=== PATIENT | female | born 1935 | race Caucasian/White ===

== ENCOUNTER 2019-04-02 10:34 | Observation (INO) | payer OTHER ==
[2019-04-02] MEDS ORDERED: morphine CARPU-JECT 2 MG/1 ML DISP.SYRIN IVPUSH ONE ×3 (11:17→14:22)
[2019-04-02] MEDS ORDERED: MORPHINE SULFATE 2 MG/ML VIAL ONE ×3 (11:24→15:08)
--- NOTE | 2019-04-02 12:21 | PDOC ---
Documentation entered by Eleazar Clinton SCRIBE, acting as scribe for Yahir Robert MD. Yahir Robert MD: This documentation has been prepared by the Mary Beth amaro Nirvannie, SCRIBE, under my direction and personally reviewed by me in its entirety. I confirm that the documentation accurately reflects all work, treatment, procedures, and medical decision making performed by me. Attending Attestation - Resident Resident Name: Leo Walsh - ED Attending Attestation I have performed the following: I have examined & evaluated the patient, The case was reviewed & discussed with the resident, I agree w/resident's findings & plan, Exceptions are as noted - HPI HPI: 04/02/19 12:21 84 F presenting to ED with L shoulder pain after falling this morning. Pt states she was getting out of the shower when she tripped over the rug and fell onto her L side. Denies headstrike/LOC. Pt denies any lightheadedness/dizziness/ CP/SOB/palpitations preceding the fall. She was able to get up on her own and call her daughter, who brought her to the ED. Pt now endorses pain in her L shoulder, denies numbness/tingling in her extremity. Denies CROCKETT/neck pain/back pain. No lower extremity pain. - Physicial Exam PE: 04/02/19 12:23 "GENERAL: Awake, alert, and fully oriented, in no acute distress. HEAD: No signs of trauma EYES: PERRLA, EOMI, sclera anicteric, conjunctiva clear ENT: Auricles normal inspection, hearing grossly normal, nares patent, oropharynx clear without exudates. Moist mucosa NECK: Nontender, no stepoffs, Normal ROM, supple, no lymphadenopathy, JVD, or masses LUNGS: Breath sounds equal, clear to auscultation bilaterally. No wheezes, and no crackles HEART: Regular rate and rhythm, normal S1 and S2, no murmurs, rubs or gallops ABDOMEN: Soft, nontender, normoactive bowel sounds. No guarding, no rebound. No masses EXTREMITIES: + L shoulder with TTP proximal humerus, flattening of deltoid, neurovascularly intact distally. NEUROLOGICAL: Cranial nerves II through XII intact. 5/5 strength and sensation in all extremities, Normal speech, normal gait, normal cerebellar function SKIN: Warm, Dry, normal turgor, no rashes or lesions noted. - Medical Decision Making 04/02/19 12:23 84 F with L shoulder pain and deformity after falling. - CT head/c-spine - XR L shoulder - Pain control CT head/c-spine negative XR L shoulder with fracture dislocation Discussed with radiology, who cannot exclude surgical neck fracture CT LUE obtained, shows comminuted avulsion fx of greater tuberosity + dislocation Case discussed with ortho ATA Pope, who reviewed XR and CT and recommends reduction. Reduction obtained after procedural sedation with versed and ketamine, but unsuccessful Ortho consulted Pt signed out to oncoming team at 7PM.
--- NOTE | 2019-04-02 12:28 | PDOC ---
History of Present Illness - General Chief Complaint: Injury Stated Complaint: FALL Time Seen by Provider: 04/02/19 10:51 History Source: Patient, Family Exam Limitations: No Limitations - History of Present Illness Initial Comments: 04/04/19 07:15 HPI: 84F PMH HTN BIBEMS after unwitnessed fall in the bathroom. Pt was getting out of shower and slipped on a rug landing on her left side. Denies head strike and LOC. Currently endorsing left shoulder pain. Endorses tingling of the left fingers, denies numbness or weakness. Denies other trauma or pain elsewhere. Denies f/c, cp/palp/sob. Not on AC. Hx of a prior fall w/ broken ribs. NKDA Past History - Past Medical History Allergies/Adverse Reactions: Allergies Allergy/AdvReac Type Severity Reaction Status Date / Time No Known Allergies Allergy Verified 04/02/19 10:58 Home Medications: Ambulatory Orders Acetaminophen [Tylenol .Regular Strength -] 650 mg PO Q6H PRN tablet 04/03/19 Atorvastatin Calcium 10 mg PO DAILY 04/03/19 Famotidine 1 tab PO BID 04/03/19 Irbesartan 1 tab PO DAILY 04/03/19 Propranolol HCl 1 tab PO DAILY 04/03/19 Ropinirole HCl 1 mg PO DAILY 04/03/19 - Psycho Social/Smoking Cessation Hx Smoking History: Unknown if ever smoked Hx Alcohol Use: No Drug/Substance Use Hx: No Review of Systems - Review of Systems Able to Perform ROS?: Yes Comments:: 04/04/19 07:16 ROS: CONSTITUTIONAL: Denies F / C HEENT: Denies headache, lightheadedness, dizziness, changes in vision / hearing RESP: Denies SOB CARD: Denies chest pain, palpitations GI: Denies N / V / D, abdominal pain : Denies dysuria, frequency SKIN: Denies rashes NEURO: Endorses tingling of the left fingers. Denies other numbness, tingling, weakness MSK: Endorses left shoulder pain. Denies back pain *Physical Exam - Vital Signs Last Vital Signs Temp Pulse Resp BP Pulse Ox 97.9 F 65 16 196/109 H 100 04/02/19 10:58 04/02/19 10:58 04/02/19 10:58 04/02/19 10:58 04/02/19 10:58 - Physical Exam Comments: 04/04/19 07:16 PE: GEN: Moderate discomfort 2/2 pain. AAOx3 HEENT: NC/AT, CN II-XII intact, EOMI, PERRLA. No facial asymmetry. Normal voice. Supple neck w/ FROM. No TTP midline c-spine. CV: S1/S2, RRR, no m/r/g LUNG: CTAB, no wheezes, crackles, rales, rhonchi. GI: soft, ndnt, +BS, no guarding, no rebound. No masses. EXTREMITIES: Squared off left shoulder. Left arm held in internal rotation. No other obvious deformities. no TTP RUE and LEs. FROM LEs b/l. 2+ radial pulses b/ l. BACK: No obvious deformities, no step offs, no midline TTP. No signs of bruising SKIN: warm, dry, normal turgor; no ecchymoses or bruises PSYCH: normal mood and affect NEURO: 5/5 RUE strength, 4/5 left covered buckle assembler, 5/5 left finger spread and "OK" sign. Symmetric sensation b/l. Sensation present over left deltoid. 5/5 LE strength. ED Treatment Course - LABORATORY CBC & Chemistry Diagram: 04/03/19 05:41 04/03/19 05:41 - RADIOLOGY Radiology Studies Ordered: Category Date Time Status CERVICAL SPINE CT W/O CONTR [CT] Stat CT Scan 04/02/19 11:[address] WITHOUT CONTRAST [CT] Stat CT Scan 04/02/19 11:19 Ordered CHEST PA & LAT [RAD] Stat Radiology 04/02/19 11:17 Ordered SHOULDER-LEFT [RAD] Stat Radiology 04/02/19 11:17 Ordered Medical Decision Making - Medical Decision Making 04/02/19 12:18 MDM: 84F s/p mechanical fall w/o headstrike or LOC not on AC w/ left shoulder deformity and pain. Neurovascularly intact. Shoulder dislocation vs fracture - Left shoulder film - CXR - CT head and c-spine - pain ctrl 04/02/19 14:38 XR possible fracture of humeral head and inferior glenoid fracture fragment, medially displaced humeral head Discussed case w/ PA Adams Abraham who recommended reduction of dislocation and reimaging w/ ortho outpatient f/u. 04/02/19 14:51 attempting to reach radiology for further clarification of xray reads - pt still in pain despite 4mg morphine; will give additional 2mg 04/02/19 15:06 Discussed imaging w/ Dr. Alvarez (radiology) - states there is a fracture but based on the images cannot tell if fracture is humeral head alone or if it involves inferior glenoid fracture fragment. 04/02/19 15:41 CT LUE to better characterize fracture 04/02/19 18:30 patient consented for procedural sedation and shoulder reduction patient sedated with versed and ketamine ED team attempted reduction w/ traction-counter traction 04/02/19 19:20 Post attempt XR demonstrates non-reduction Pt neurovascularly intact - Ortho c/s signed out to PM team Discharge - Discharge Information Problems reviewed: Yes Clinical Impression/Diagnosis: Intractable pain Shoulder dislocation Qualifiers: Encounter type: initial encounter Laterality: left Qualified Code(s): S43.005A - Unspecified dislocation of left shoulder joint, initial encounter Condition: Improved - Follow up/Referral - Patient Discharge Instructions - Post Discharge Activity
[2019-04-02] MEDS ORDERED: MIDAZOLAM HCL 2 MG/2 ML SINGLE DOSE VIAL IVPUSH ONE (18:09)
[2019-04-02] MEDS ORDERED: KETAMINE HCL 200 MG/20 ML VIAL IVPUSH ONE (18:09)
[2019-04-02] MEDS ORDERED: MIDAZOLAM HCL 2 MG/2 ML SINGLE DOSE VIAL ONE (18:29)
[2019-04-02] MEDS ORDERED: KETAMINE HCL 200 MG/20 ML VIAL ONE (18:29)
--- NOTE | 2019-04-02 19:28 | PDOC ---
*Physical Exam - Vital Signs Last Vital Signs Temp Pulse Resp BP Pulse Ox 97.9 F 69 18 144/98 98 04/02/19 10:58 04/02/19 18:30 04/02/19 18:30 04/02/19 18:30 04/02/19 18:30 - Physical Exam Comments: Patient signed out by Dr. Walsh 84yo F with PMH of HTN BIBEMS after unwitnessed fall in the bathroom. CT LUE: "COMPARISON: None. FINDINGS: Comminuted avulsion fracture of the greater tuberosity of the proximal left humerus. There are no visible fractures of the surgical or anatomic neck of the proximal left humerus. The humeral head is anteriorly dislocated and interposed between the anterior margin of the scapula and the left ribs. A joint effusion is evident. There is an avulsion fracture of the coracoid process associated with the short head of the biceps tendons. An inferior glenoid rim fracture is noted with minimal displacement. A glenohumeral joint effusion is present. No abnormality of the acromioclavicular articulation. No large hematoma in the axillary region. No underlying rib fractures or pneumothorax. IMPRESSION: Comminuted avulsion fracture of the greater tuberosity of the proximal left humerus. There are no visible fractures of the surgical or anatomic neck of the proximal left humerus. The humeral head is anteriorly dislocated and interposed between the anterior margin of the scapula and the left ribs. Small avulsion fracture of the coracoid process. Small, nondisplaced inferior rim fracture of the glenoid." S/p reduction attempt Radiograph showing shoulder is still dislocated Plan to consult orthopedics 04/02/19 19:28 Page to ortho at [phone]; awaiting callback 04/02/19 19:37 Patient had received total of 6mg morphine Continues to be in "excruciating" pain Last BP 160s systolic 2mg dilaudid ordered Discussed case with Orthopedics ATA Abraham who will come to reduce the shoulder ; recommends propofol for procedural sedation 04/02/19 19:40 Benefits/risks explained and patient voiced understanding. Patient signed consent for procedural sedation Received 30mg propofol (slightly less than 0.5mg/kg) Reduction performed by ATA Abraham using traction/counter-traction method; arm placed in sling Post procedure film pending Will continue to monitor 04/02/19 21:08 L. shoulder radiograph without dislocation, my impression Admission recommended as patient is in severe pain requiring acute inpatient management as indicated by pain unresponsive to non-opioid analgesia and nonpharmacologic treatment; oral, transdermal, submucosal route not appropriate or not sufficient; anticipated titration not appropriate for lower level of care Discussed case with Dr. Garcia who accepted patient for med/surg observation under Dr. Tompkins 04/02/19 21:55 Patient's daughter, Kirti Wood, can be reached at [phone] 04/02/19 22:04 ED Treatment Course - LABORATORY CBC & Chemistry Diagram: 04/02/19 20:29 04/02/19 20:29 - Medications Given in the ED: ED Medications Discontinued Medications Generic Name Dose Route Start Last Admin Trade Name Freq PRN Reason Stop Dose Admin Morphine Sulfate 2 mg 04/02/19 11:17 04/02/19 12:15 Morphine Injection - IVPUSH 04/02/19 11:18 2 mg ONCE ONE Administration Morphine Sulfate 2 mg 04/02/19 13:00 04/02/19 13:19 Morphine Injection - IVPUSH 04/02/19 13:01 2 mg ONCE ONE Administration Morphine Sulfate 2 mg 04/02/19 14:22 04/02/19 15:09 Morphine Injection - IVPUSH 04/02/19 14:23 2 mg ONCE ONE Administration Discharge - Discharge Information Problems reviewed: Yes Clinical Impression/Diagnosis: Shoulder dislocation, Intractable pain Condition: Guarded - Admission Yes - Follow up/Referral - Patient Discharge Instructions - Post Discharge Activity
[2019-04-02] MEDS ORDERED: HYDROmorphone HCL CARPU-JECT 2 MG/1 ML DISP.SYRIN IVPUSH ONE (19:52)
--- NOTE | 2019-04-02 19:56 | PDOC ---
*Physical Exam - Vital Signs Last Vital Signs Temp Pulse Resp BP Pulse Ox 97.9 F 70 14 158/89 96 04/02/19 10:58 04/02/19 19:31 04/02/19 19:31 04/02/19 19:31 04/02/19 19:31 ED Treatment Course - LABORATORY CBC & Chemistry Diagram: 04/02/19 20:29 04/02/19 20:29 - Medications Given in the ED: ED Medications Discontinued Medications Generic Name Dose Route Start Last Admin Trade Name Luz PRN Reason Stop Dose Admin Morphine Sulfate 2 mg 04/02/19 11:17 04/02/19 12:15 Morphine Injection - IVPUSH 04/02/19 11:18 2 mg ONCE ONE Administration Morphine Sulfate 2 mg 04/02/19 13:00 04/02/19 13:19 Morphine Injection - IVPUSH 04/02/19 13:01 2 mg ONCE ONE Administration Morphine Sulfate 2 mg 04/02/19 14:22 04/02/19 15:09 Morphine Injection - IVPUSH 04/02/19 14:23 2 mg ONCE ONE Administration Medical Decision Making - Medical Decision Making 04/02/19 19:52 Received pt on signout. She had relocation efforts of her brokern and dislocated left shoulder that hasn't worked. Morphine not helping; we will give 2mg dilaudid. Pt states that she is in excruciating pain. She has never been in this hospital before; no labs on file. She fell inshower, reportedly; pt lives alone; she states that she slipped and fell, but we do not know what her HB/HCT level is. Pt not on blood thinners, however, we will get INR, because I anticipate bleeding from her brokern proximal humerus, particularly after all the tugging on her shoulder past and futire; Ortho called and they will come and attempt relocation. Pt lives alone and she will likely be admitted for observation. 04/02/19 19:58 Pt has 3 fractures: greater tuberosity of the humeral head; coracoid process; glenoid rim I do not anticipate sending her home tonight, as she will likely have pain management issues. She has been in the ER for 9.5 hrs thus far. 04/02/19 21:03 Ortho PA at bedside; conscious sedation paperwork signed; pt given 30mg of propofol IVP; she will get a repeat XR; nurse, resident, myself and tech in attendance and all involved in the procedure. 04/02/19 21:39 Relocation was successful and pt tolerated the procedure well 04/02/19 22:28 Pt admitted for pain management. Family is in agreement. 04/02/19 22:29 Discharge - Discharge Information Problems reviewed: Yes Clinical Impression/Diagnosis: Shoulder dislocation, Intractable pain Condition: Guarded - Follow up/Referral - Patient Discharge Instructions - Post Discharge Activity Procedures - Joint Reduction Left Joint Reduction Site: left: Shoulder Pre-Procedure NV Exam: normal Conscious Sedation: Yes (propofol) Reduction Attempts: 1 Amt. of medication administered: 10mg (30mg of propofol) Procedure: Traction Counter Traction Post-Procedure NV Exam: normal Complications: No Post Joint Reduction Film: joint reduced Splint: No (only sling) Immobilized: Yes
[2019-04-02] MEDS ORDERED: HYDROmorphone HCl 2 MG/ML VIAL ONE (20:16)
[2019-04-02] MEDS ORDERED: PROPOFOL 200 MG/20 ML VIAL IVPUSH ONE ×2 (20:30→21:40)
[2019-04-02] MEDS ORDERED: PROPOFOL 20 ML ONE (20:34)
[2019-04-02] MEDS ORDERED: SODIUM CHLORIDE 0.9% 500 ML INFUS.BAG IV ONE (20:40)
[2019-04-02 20:46] LABS: BASO % 0.8 % (0-2.0); EOS % 0.7 % (0-4.5); HEMATOCRIT 43.2 % (32.4-45.2); HEMOGLOBIN 14.4 GM/dL (10.7-15.3); LYMPH % 11.6 % (8-40); MCH 33.3 pg (25.7-33.7); MCHC 33.4 g/dl (32.0-36.0); MEAN CELL VOLUME 99.6 fl (80-96); MEAN PLT VOLUME 7.9 fl (7.5-11.1); MONO % 6.5 % (3.8-10.2); NEUT % 80.4 % (42.8-82.8); PLATELET COUNT 210 K/MM3 (134-434); RBC 4.34 M/mm3 (3.60-5.2); RDW 12.8 % (11.6-15.6); WHITE BLOOD COUNT 9.5 K/mm3 (4.0-10.0)
--- NOTE | 2019-04-02 21:18 | CONSULT ---
Consult Reason for Consultation:: Left shoulder pain x 12 hours - History of Present Illness History of Present Illness: 84y/o female c/o left shoulder pain x 12 hours. She fell earlier today and injured her left shoulder. She is unable to lift the arm. She came to the ER and was found to have a fracture dislocation and a closed reduction was attempted but failed. Orthopedics was consulted. the patient continues to have pain in the arm. She denies any numbness or tingling. - History Source History Provided By: Patient, Medical Record - Alcohol/Substance Use Hx Alcohol Use: No - Smoking History Smoking history: Unknown if ever smoked Home Medications - Allergies Allergies/Adverse Reactions: Allergies Allergy/AdvReac Type Severity Reaction Status Date / Time No Known Allergies Allergy Verified 04/02/19 10:58 - Home Medications Home Medications: Ambulatory Orders Acetaminophen [Tylenol .Regular Strength -] 650 mg PO Q6H PRN tablet 04/03/19 Atorvastatin Calcium 10 mg PO DAILY 04/03/19 Famotidine 1 tab PO BID 04/03/19 Irbesartan 1 tab PO DAILY 04/03/19 Propranolol HCl 1 tab PO DAILY 04/03/19 Ropinirole HCl 1 mg PO DAILY 04/03/19 Review of Systems - Review of Systems Constitutional: reports: No Symptoms Eyes: reports: No Symptoms HENT: reports: No Symptoms Neck: reports: No Symptoms Cardiovascular: reports: No Symptoms Respiratory: reports: No Symptoms Gastrointestinal: reports: No Symptoms Genitourinary: reports: No Symptoms Breasts: reports: No Symptoms Reported Musculoskeletal: reports: Extremity Pain Integumentary: reports: No Symptoms Neurological: reports: No Symptoms Endocrine: reports: No Symptoms Hematology/Lymphatic: reports: No Symptoms Psychiatric: reports: No Symptoms Physical Exam Vital Signs: Vital Signs Temperature 97.9 F 04/02/19 10:58 Pulse Rate 75 04/02/19 21:00 Respiratory Rate 12 04/02/19 21:00 Blood Pressure 164/103 H 04/02/19 21:00 O2 Sat by Pulse Oximetry (%) 94 L 04/02/19 21:00 Constitutional: Yes: Well Nourished, No Distress, Calm Musculoskeletal: Yes: Other (Left shoulder: Obvious deformity of the left shoulder consitant with anterior shoulder dislocation. there is pain with motion. NVID. Compartments soft.) Labs: CBC, BMP 04/02/19 20:29 Imaging - Results X-ray: Report Reviewed, Image Reviewed (Anterior shoulder dislocation with greater tubersoity fracture) Cat Scan: Report Reviewed, Image Reviewed Assessment/Plan #1 Left shoulder anterior dislocation -I discussed today's findings and treatment options with the patient and family. together we decided to proceed with closed reduction. RBA discussed. Procedure, Left shoulder fracture/dislocation reduction: the patient was positioned supine. A sheet was used to provide counter traction. the patient was sedated by the ER staff with propofol. A traction/counter traction maneuver was then performed and after about 10 minutes reduction was achieved. The patient tolerated the procedure well. Post reduction x-rays were obtained. NV exam intact s/p reduction. Sling was placed. -Follow up in 1 week in office or sooner if needed -multimedia coordinator sling immobilzation -Return to ER for severe pain or any problems -Pain control
[2019-04-02 21:19] LABS: BLOOD UREA NITROGEN 25.7 mg/dL (7-18); CALCIUM 9.2 mg/dL (8.5-10.1); CREATININE 0.9 mg/dL (0.55-1.3); POTASSIUM 4.9 mmol/L (3.5-5.1); TOT PROT 6.8 g/dl (6.4-8.2)
[2019-04-02 21:23] LABS: INR 0.96 (0.83-1.09); PROTHROMBIN TIME (PATIENT) 11.3 SEC (9.7-13.0)
--- NOTE | 2019-04-02 21:49 | PN ---
Teaching Attending Note Name of Resident: Kain Goddard ATTENDING PHYSICIAN STATEMENT I saw and evaluated the patient. I reviewed the resident's note and discussed the case with the resident. I agree with the resident's findings and plan as documented. SUBJECTIVE: Patient is an 84 year old woman with PMH of HTN presenting to ER with left shoulder pain after a fall this morning. Patient states she was getting out of the shower when she tripped over the rug and fell onto her left side. Denies headstrike/LOC. Denies any lightheadedness, dizziness, chest pain, SOB, or palpitations preceding the fall. She was able to get up on her own and call her daughter, who brought her to the ER. Patient denies numbness/tingling in her extremity, headache, neck pain, back pain or lower extremity pain. Denies tobacco, alcohol or illicit drug use. Patient seen by Ortho in the ER and the shoulder dislocation reduced. OBJECTIVE: Alert Vital Signs Period Temp Pulse Resp BP Sys/Andrews Pulse Ox Last 24 Hr 97.9 F 60-80 11-20 120-196/79-139 92-100 HEENT: No Jaundice, eye redness or discharge, PERRLA, EOMI. Normocephalic, atraumatic. External ears are normal and hearing is grossly intact. No nasal discharge. Neck: Supple, nontender. No palpable adenopathy or thyromegaly. No JVD Chest: Good effort. Clear to auscultation and percussion. Heart: Regular. No S3 or rub; 2/6 RODOLFO Abdomen: Not distended, soft, nontender and no HSM. No rebound or guarding. Normal bowel sounds. Ext: Peripheral pulses intact. No leg edema. Tender left shoulder with limited ROM. Distal motor and sensory function intact. Skin: Warm and dry. No petechiae, rash or ecchymosis. Neuro: Alert. Oriented x3. CN 2-12 grossly intact. Sensation grossly intact in all four extremities and DTR are symmetric. Psych: Appropriate mood and affect. Good insight. Current Medications Generic Name Dose Route Start Last Admin Trade Name Freq PRN Reason Stop Dose Admin Heparin Sodium (Porcine) 5,000 unit 04/03/19 06:00 Heparin - SQ TID GIANNI Home Medications Medication Instructions Recorded Unobtainable 04/02/19 Abnormal Lab Results 04/02/19 04/02/19 04/02/19 20:29 20:29 20:29 MCV 99.6 H Chloride 108 H Anion Gap 5 L BUN 25.7 H Random Glucose 113 H B-Natriuretic Peptide 459.6 H ASSESSMENT AND PLAN: 1. Fall/Left shoulder dislocation - CT scan and CXR showed left shoulder dislocation and left humeral head fracture. Dislocation was reduced in the ER by Ortho under propofol sedation. No obvious explanation for recurrent falls. EKG shows NSR with LAE and LBBB. No acute abnormality on head CT scan. Will implement fall precautions, keep her NPO , hydrate gently, check HbA1c and use tylenol for pain control. Will continue comprehensive care for all of patients comorbid conditions. 2. Hypertension - Restart suitable outpatient antihypertensive drugs when clinically appropriate. Revise regimen to ensure [id number] excellent BP control and psychosocial rehabilitation counselor patient on the injurious effects of uncontrolled hypertension. Nonpharmacologic measures to control hypertension like weight loss , salt restriction and exercise discussed. Importance of adherence to treatment regimen and attainment of normotension emphasized. 3. DVT prophylaxis - Lovenox 40 mg SQ q 24 hours. 4. Advance directives - Full code
--- NOTE | 2019-04-02 22:35 | HP ---
CHIEF COMPLAINT: Shoulder pain PCP: Adams Salmon Jr., MD ([facility]) HISTORY OF PRESENT ILLNESS: 84 y/o female PMH HTN and HLD BIBEMS s/p mechanical fall at home. Pt was stepping out of shower on to a wet floor mat and fell forward onto her outstretched LEFT arm. Immediately prior to the fall, she did not experience dizziness, aura, and palpitations. She denies head trauma, tongue biting, and LOC. After the fall, she denies bleeding, numbness, tingling, CROCKETT, SOB and chest pain. She has a h/o falls. This is her 5th fall and the previous fall required ( summer 2018) hospitalization for fractured ribs. She reports taking aspiring daily but does not know the reason. The resultant shoulder pain was 10/[address] in ED demonstrated medially displaced humeral head. She was given versed/ketamine, a reduction was attempted but not achieved. Propofol was administered and the shoulder deformity was successfully reduced. She was given 2mg morphine x3. She does not presently report pain or SOB. ER course was notable for: as above Recent Travel: [place] in spring 2018 PAST MEDICAL HISTORY: HTN, HLD PAST SURGICAL HISTORY: Denies Social History: Smoking: Denies Alcohol: Denies Drugs: Denies Allergies: No Known Allergies Allergy (Verified 04/02/19 10:58) HOME MEDICATIONS: Home Medications Medication Instructions Recorded Unobtainable 04/02/19 REVIEW OF SYSTEMS CONSTITUTIONAL: Absent: fever, chills, diaphoresis, generalized weakness, malaise, loss of appetite, weight change HEENT: Absent: rhinorrhea, nasal congestion, throat pain, throat swelling, difficulty swallowing, mouth swelling, ear pain, eye pain, visual changes CARDIOVASCULAR: Absent: chest pain, syncope, palpitations, irregular heart rate, lightheadedness , peripheral edema RESPIRATORY: Absent: cough, shortness of breath, dyspnea with exertion, orthopnea, wheezing, stridor, hemoptysis GASTROINTESTINAL: Absent: abdominal pain, abdominal distension, nausea, vomiting, diarrhea, constipation, melena, hematochezia GENITOURINARY: Absent: dysuria, frequency, urgency, hesitancy, hematuria, flank pain, genital pain MUSCULOSKELETAL: Absent: myalgia, arthralgia, joint swelling, back pain, neck pain SKIN: Absent: rash, itching, pallor HEMATOLOGIC/IMMUNOLOGIC: Absent: easy bleeding, easy bruising, lymphadenopathy, frequent infections ENDOCRINE: Absent: unexplained weight gain, unexplained weight loss, heat intolerance, cold intolerance NEUROLOGIC: Absent: headache, focal weakness or paresthesias, dizziness, unsteady gait, seizure, mental status changes, bladder or bowel incontinence PSYCHIATRIC: Absent: anxiety, depression, suicidal or homicidal ideation, hallucinations. PHYSICAL EXAMINATION Vital Signs - 24 hr 04/02/19 04/02/19 04/02/19 10:58 15:00 18:30 Temperature 97.9 F Pulse Rate 65 Pulse Rate [ 70 Left] Pulse Rate [ 69 Right Upper Arm ] Respiratory 16 14 Rate Respiratory 18 Rate [Right Upper Arm] Blood Pressure 196/109 H Blood Pressure 157/101 H [Right Arm] Blood Pressure 144/98 [Right Upper Arm] O2 Sat by Pulse 100 97 Oximetry (%) O2 Sat by Pulse 98 Oximetry (%) [ Right Upper Arm ] 04/02/19 04/02/19 04/02/19 18:55 19:15 19:31 Temperature Pulse Rate Pulse Rate [ 60 Left] Pulse Rate [ 61 70 Right Upper Arm ] Respiratory 14 Rate Respiratory 20 14 Rate [Right Upper Arm] Blood Pressure Blood Pressure 159/81 [Right Arm] Blood Pressure 163/93 158/89 [Right Upper Arm] O2 Sat by Pulse 95 Oximetry (%) O2 Sat by Pulse 98 96 Oximetry (%) [ Right Upper Arm ] 04/02/19 04/02/19 04/02/19 20:44 20:54 21:00 Temperature Pulse Rate Pulse Rate [ 79 69 75 Left] Pulse Rate [ Right Upper Arm ] Respiratory 11 17 12 Rate Respiratory Rate [Right Upper Arm] Blood Pressure Blood Pressure 182/134 H 158/139 H 164/103 H [Right Arm] Blood Pressure [Right Upper Arm] O2 Sat by Pulse 94 L 92 L 94 L Oximetry (%) O2 Sat by Pulse Oximetry (%) [ Right Upper Arm ] 04/02/19 21:05 Temperature Pulse Rate Pulse Rate [ 80 Left] Pulse Rate [ Right Upper Arm ] Respiratory 15 Rate Respiratory Rate [Right Upper Arm] Blood Pressure Blood Pressure 120/79 [Right Arm] Blood Pressure [Right Upper Arm] O2 Sat by Pulse 95 Oximetry (%) O2 Sat by Pulse Oximetry (%) [ Right Upper Arm ] GENERAL: AOx3, in no acute distress, LEFT arm in sling, mildly lethargic, slowed speech HEAD: NCAT EYES: ROCAEL, EOMI, conjunctiva clear. ENT: Ears normal, nares patent, oropharynx clear without exudates. Moist mucous membranes. NECK: Normal range of motion, supple without lymphadenopathy, JVD, or masses. LUNGS: CTAB. No wheezes, and no crackles. No accessory muscle use. HEART: Harsh, crescendo-decrescendo murmur at the RIGHT 2nd intercostal space. RRR s1 s2 ABDOMEN: Soft, BS present in all 4 quadrants, non-distended, no JVD, MUSCULOSKELETAL: Tenderness to palpation over LEFT shoulder joint. No bony deformities UPPER EXTREMITIES: 2+ pulses, warm, well-perfused. No cyanosis. No clubbing. No peripheral edema. LOWER EXTREMITIES: 2+ pulses, warm, well-perfused. No calf tenderness. No peripheral edema. NEUROLOGICAL: Resting RIGHT hand tremor. Cranial nerves II-XII intact. Normal speech. Gait not appreciated. PSYCHIATRIC: Cooperative. Good eye contact. Appropriate mood and affect. SKIN: LEFT forehead 0.5x0.5cm round, brown nevus. Warm, dry, normal turgor, no rashes or lesions noted, normal capillary refill. Laboratory Results - last 24 hr 04/02/19 04/02/19 04/02/19 20:29 20:29 20:29 WBC 9.5 RBC 4.34 Hgb 14.4 Hct 43.2 MCV 99.6 H MCH 33.3 MCHC 33.4 RDW 12.8 Plt Count 210 MPV 7.9 Absolute Neuts (auto) 7.7 Neutrophils % 80.4 Lymphocytes % 11.6 Monocytes % 6.5 Eosinophils % 0.7 Basophils % 0.8 Nucleated RBC % 0 PT with INR INR Sodium 137 Potassium 4.9 Chloride 108 H Carbon Dioxide 24 Anion Gap 5 L BUN 25.7 H Creatinine 0.9 Est GFR (CKD-EPI)AfAm 67.57 Est GFR (CKD-EPI)NonAf 58.30 Random Glucose 113 H Calcium 9.2 Total Bilirubin 1.0 AST 34 ALT 29 Alkaline Phosphatase 51 B-Natriuretic Peptide 459.6 H Total Protein 6.8 Albumin 4.0 Blood Type Antibody Screen 04/02/19 04/02/19 20:29 20:29 WBC RBC Hgb Hct MCV MCH MCHC RDW Plt Count MPV Absolute Neuts (auto) Neutrophils % Lymphocytes % Monocytes % Eosinophils % Basophils % Nucleated RBC % PT with INR 11.30 INR 0.96 Sodium Potassium Chloride Carbon Dioxide Anion Gap BUN Creatinine Est GFR (CKD-EPI)AfAm Est GFR (CKD-EPI)NonAf Random Glucose Calcium Total Bilirubin AST ALT Alkaline Phosphatase B-Natriuretic Peptide Total Protein Albumin Blood Type A NEGATIVE Antibody Screen Negative ASSESSMENT/PLAN: 84 y/o female PMH HTN and HLD BIBEMS s/p mechanical fall at home. Resultant LEFT humerus dislocation, successfully reduced in ED. Here for pain management. # Pain 2/2 shoulder deformity s/p mechanical fall - Tylenol 650 mg q8h - WBAT # HTN - Reconcile medication - Resume home regimen #F/E/N - PO hydration - Cont. to monitor - Low sodium diet # DVT prophylaxis - Heparin SQ # Disposition - Admit to observation Kain Goddard MD Visit type - Emergency Visit Emergency Visit: Yes ED Registration Date: 04/02/19 Care time: The patient presented to the Emergency Department on the above date and was hospitalized for further evaluation of their emergent condition. - New Patient This patient is new to me today: Yes Date on this admission: 04/03/19 - Critical Care Critical Care patient: No ATTENDING PHYSICIAN STATEMENT I saw and evaluated the patient. I reviewed the resident's note and discussed the case with the resident. I agree with the resident's findings and plan as documented. SUBJECTIVE: OBJECTIVE: ASSESSMENT AND PLAN:
[2019-04-03] MEDS ORDERED: ACETAMINOPHEN 325 MG TABLET (FP) PO PRN (00:41)
[2019-04-03] MEDS ORDERED: HEPARIN NA (PORCINE) 5,000 UNITS/ML 1ML VIAL ONE ×2 (06:46→13:31)
[2019-04-03] MEDS: HEPARIN NA (PORCINE) 5,000 UNITS/ML 1ML VIAL SQ SCH ×2 (06:57→13:30)
[2019-04-03 07:50] LABS: HEMATOCRIT 39.5 % (32.4-45.2); HEMOGLOBIN 13.5 GM/dL (10.7-15.3); MCH 33.7 pg (25.7-33.7); MCHC 34.3 g/dl (32.0-36.0); MEAN CELL VOLUME 98.5 fl (80-96); PLATELET COUNT 211 K/MM3 (134-434); RBC 4.01 M/mm3 (3.60-5.2); RDW 13.3 % (11.6-15.6); WHITE BLOOD COUNT 7.7 K/mm3 (4.0-10.0)
[2019-04-03 08:17] LABS: CALCIUM 8.8 mg/dL (8.5-10.1); CREATININE 1.1 mg/dL (0.55-1.3); MAGNESIUM 2.6 mg/dL (1.8-2.4); PHOSPHOROUS 4.8 mg/dL (2.5-4.9); POTASSIUM 4.6 mmol/L (3.5-5.1)
--- NOTE | 2019-04-03 14:33 | PN ---
Teaching Attending Note Name of Resident: Zurdo Méndez ATTENDING PHYSICIAN STATEMENT I saw and evaluated the patient. I reviewed the resident's note and discussed the case with the resident. I agree with the resident's findings and plan as documented. SUBJECTIVE: Patient is feeling better with no acute distress, denies having any pain. OBJECTIVE: Vital Signs Temperature 97.9 F 04/02/19 10:58 Pulse Rate 66 04/03/19 05:26 Respiratory Rate 15 04/03/19 05:26 Blood Pressure 99/59 L 04/03/19 05:26 O2 Sat by Pulse Oximetry (%) 95 04/03/19 05:26 GENERAL: The patient is awake, alert, and fully oriented, in no acute distress. HEAD: Normal with no signs of trauma. EYES: PERRL, extraocular movements intact, sclera anicteric, conjunctiva clear. ENT: Ears normal, oropharynx clear without exudates, moist mucous membranes. NECK: Trachea midline, full range of motion, supple. LUNGS: Breath sounds equal, clear to auscultation bilaterally, no wheezes, no crackles, no accessory muscle use. HEART: Regular rate and rhythm, S1, S2 without murmur, rub or gallop. ABDOMEN: Soft, nontender, nondistended, normoactive bowel sounds, no guarding, no rebound, no hepatosplenomegaly, no masses. EXTREMITIES: 2+ pulses, warm, left arm in the sling. NEUROLOGICAL: Cranial nerves II through XII grossly intact. Normal speech, gait not observed. PSYCH: Normal mood, normal affect. SKIN: Warm, dry, normal turgor, no rashes or lesions noted CBCD WBC 7.7 K/mm3 (4.0-10.0) 04/03/19 05:41 RBC 4.01 M/mm3 (3.60-5.2) 04/03/19 05:41 Hgb 13.5 GM/dL (10.7-15.3) 04/03/19 05:41 Hct 39.5 % (32.4-45.2) 04/03/19 05:41 MCV 98.5 fl (80-96) H 04/03/19 05:41 MCHC 34.3 g/dl (32.0-36.0) 04/03/19 05:41 RDW 13.3 % (11.6-15.6) 04/03/19 05:41 Plt Count 211 K/MM3 (134-434) 04/03/19 05:41 MPV 8.0 fl (7.5-11.1) 04/03/19 05:41 CMP Sodium 139 mmol/L (136-145) 04/03/19 05:41 Potassium 4.6 mmol/L (3.5-5.1) 04/03/19 05:41 Chloride 109 mmol/L (98-107) H 04/03/19 05:41 Carbon Dioxide 24 mmol/L (21-32) 04/03/19 05:41 Anion Gap 6 MMOL/L (8-16) L 04/03/19 05:41 BUN 33.0 mg/dL (7-18) H 04/03/19 05:41 Creatinine 1.1 mg/dL (0.55-1.3) 04/03/19 05:41 Random Glucose 109 mg/dL (74-106) H 04/03/19 05:41 Calcium 8.8 mg/dL (8.5-10.1) 04/03/19 05:41 Total Bilirubin 1.0 mg/dL (0.2-1) 04/02/19 20:29 AST 34 U/L (15-37) 04/02/19 20:29 ALT 29 U/L (13-61) 04/02/19 20:29 Alkaline Phosphatase 51 U/L (45-117) 04/02/19 20:29 Total Protein 6.8 g/dl (6.4-8.2) 04/02/19 20:29 Albumin 4.0 g/dl (3.4-5.0) 04/02/19 20:29 Current Medications Generic Name Dose Route Start Last Admin Trade Name Freq PRN Reason Stop Dose Admin Acetaminophen 650 mg 04/03/19 00:41 Tylenol - PO Q6H PRN Fever Or Pain Heparin Sodium (Porcine) 5,000 unit 04/03/19 06:00 04/03/19 06:57 Heparin - SQ 5,000 unit TID GIANNI Administration Home Medications Medication Instructions Recorded Acetaminophen [Tylenol .Regular 650 mg PO Q6H PRN tablet 04/03/19 Strength -] Atorvastatin Calcium 10 mg PO DAILY 04/03/19 Famotidine 1 tab PO BID 04/03/19 Irbesartan 1 tab PO DAILY 04/03/19 Propranolol HCl 1 tab PO DAILY 04/03/19 Ropinirole HCl 1 mg PO DAILY 04/03/19 ASSESSMENT AND PLAN: Patient is an 84yo female with Pmhx of HTN and HLD s/p mechanical fall at home which resulted with lateral humeral head fracture and was reduced in ED. # S/p mechanical fall with left lateral humeral head fx s/p reduction. continue tylenol 650 mg q8h # HTN continue home meds. DVT prophylaxis: Heparin SQ discharge patient home, with follow up visit to ortho
[2019-04-03] MEDS ORDERED: ACETAMINOPHEN 325 MG TABLET (FP) ONE (15:53)
--- NOTE | 2019-04-03 15:57 | EKG ---
Test Reason : Blood Pressure : / mmHG Vent. Rate : 075 BPM Atrial Rate : 075 BPM P-R Int : 148 ms QRS Dur : 136 ms QT Int : 432 ms P-R-T Axes : 024 -11 111 degrees QTc Int : 482 ms NORMAL SINUS RHYTHM POSSIBLE LEFT ATRIAL ENLARGEMENT LEFT BUNDLE BRANCH BLOCK ABNORMAL ECG NO PREVIOUS ECGS AVAILABLE Confirmed by GLO CONKLIN, LUIS M ([id number]) on 04/03/2019 3:56:59 PM Referred By: Confirmed By:LUIS M CODY MD
[2019-04-03 16:07] VITALS: TEMP 98
[2019-04-03 16:23] VITALS: BP 129/79; PULSE 77
--- NOTE | 2019-04-03 17:30 | DS ---
Physical Exam: SUBJECTIVE: Patient seen and examined. Pt is asymtpomatic and afebrile. Left shoulder reduced and immobilized in sling. Denies f/c/n/v/d/chest pain/sob OBJECTIVE: Vital Signs Period Temp Pulse Resp BP Sys/Andrews Pulse Ox Last 24 Hr 98 F-98.0 F 60-80 11-20 99-182/59-139 92-100 PHYSICAL EXAM GENERAL: AOx3, in no acute distress, LEFT arm in sling HEAD: NCAT EYES: ROCAEL, EOMI, conjunctiva clear. ENT: Ears normal, nares patent, oropharynx clear without exudates. Moist mucous membranes. LUNGS: CTAB. No wheezes, and no crackles. No accessory muscle use. HEART: Harsh, crescendo-decrescendo murmur at the RIGHT 2nd intercostal space. RRR s1 s2 ABDOMEN: Soft, BS present in all 4 quadrants, non-distended, no JVD, MUSCULOSKELETAL: Tenderness to palpation over LEFT shoulder joint. No bony deformities UPPER EXTREMITIES: 2+ pulses, warm, Left arm in sling after reduction LOWER EXTREMITIES: 2+ pulses, warm, well-perfused. No calf tenderness. No peripheral edema. NEUROLOGICAL: Resting RIGHT hand tremor. Cranial nerves II-XII intact. Normal speech. Gait not appreciated. PSYCHIATRIC: Cooperative. Good eye contact. Appropriate mood and affect. SKIN: LEFT forehead 0.5x0.5cm round, brown nevus. Warm, dry, normal turgor, no rashes or lesions noted, normal capillary refill. LABS Laboratory Results - last 24 hr CBC,CMP WBC 7.7 K/mm3 (4.0-10.0) 04/03/19 05:41 RBC 4.01 M/mm3 (3.60-5.2) 04/03/19 05:41 Hgb 13.5 GM/dL (10.7-15.3) 04/03/19 05:41 Hct 39.5 % (32.4-45.2) 04/03/19 05:41 MCV 98.5 fl (80-96) H 04/03/19 05:41 MCH 33.7 pg (25.7-33.7) 04/03/19 05:41 MCHC 34.3 g/dl (32.0-36.0) 04/03/19 05:41 RDW 13.3 % (11.6-15.6) 04/03/19 05:41 Plt Count 211 K/MM3 (134-434) 04/03/19 05:41 MPV 8.0 fl (7.5-11.1) 04/03/19 05:41 Absolute Neuts (auto) 7.7 K/mm3 (1.5-8.0) 04/02/19 20:29 Neutrophils % 80.4 % (42.8-82.8) 04/02/19 20:29 Lymphocytes % 11.6 % (8-40) 04/02/19 20:29 Monocytes % 6.5 % (3.8-10.2) 04/02/19 20:29 Eosinophils % 0.7 % (0-4.5) 04/02/19 20:29 Basophils % 0.8 % (0-2.0) 04/02/19 20:29 Nucleated RBC % 0 % (0-0) 04/02/19 20:29 Sodium 139 mmol/L (136-145) 04/03/19 05:41 Potassium 4.6 mmol/L (3.5-5.1) 04/03/19 05:41 Chloride 109 mmol/L (98-107) H 04/03/19 05:41 Carbon Dioxide 24 mmol/L (21-32) 04/03/19 05:41 Anion Gap 6 MMOL/L (8-16) L 04/03/19 05:41 BUN 33.0 mg/dL (7-18) H 04/03/19 05:41 Creatinine 1.1 mg/dL (0.55-1.3) 04/03/19 05:41 Est GFR (CKD-EPI)AfAm 53.02 04/03/19 05:41 Est GFR (CKD-EPI)NonAf 45.74 04/03/19 05:41 Random Glucose 109 mg/dL (74-106) H 04/03/19 05:41 Calcium 8.8 mg/dL (8.5-10.1) 04/03/19 05:41 Phosphorus 4.8 mg/dL (2.5-4.9) 04/03/19 05:41 Magnesium 2.6 mg/dL (1.8-2.4) H 04/03/19 05:41 Total Bilirubin 1.0 mg/dL (0.2-1) 04/02/19 20:29 AST 34 U/L (15-37) 04/02/19 20:29 ALT 29 U/L (13-61) 04/02/19 20:29 Alkaline Phosphatase 51 U/L (45-117) 04/02/19 20:29 B-Natriuretic Peptide 459.6 pg/ml (5-450) H 04/02/19 20:29 Total Protein 6.8 g/dl (6.4-8.2) 04/02/19 20:29 Albumin 4.0 g/dl (3.4-5.0) 04/02/19 20:29 Home Medications Medication Instructions Recorded Acetaminophen [Tylenol .Regular 650 mg PO Q6H PRN tablet 04/03/19 Strength -] Atorvastatin Calcium 10 mg PO DAILY 04/03/19 Famotidine 1 tab PO BID 04/03/19 Irbesartan 1 tab PO DAILY 04/03/19 Propranolol HCl 1 tab PO DAILY 04/03/19 Ropinirole HCl 1 mg PO DAILY 04/03/19 HOSPITAL COURSE: Date of Admission:04/02/19 84 y/o female PMH HTN and HLD BIBEMS s/p mechanical fall at home was admitted for left shoulder dislocation seen on X rays and CT UE. Orthopedics internally reduced the shoulder and pt's pain improved. Arm was placed in sling, educated on WBAT and pt was discharged on OTC pain meds. X ray: medial dislocation with a possible humeral head fx CT UE: Anterior shoulder dislocation, comminuted fx through the greater tuberosity of humerus with moderate displacement of fx fragments. Nondisplaced fx of the coracoid process and possible nondisplaced fx of the inferior glenoid rim. EKG: NSR, left atrial enlargement, LBBB # Pain 2/2 shoulder deformity s/p mechanical fall - Tylenol 650 mg q8h - WBAT # HTN - Resume home regimen Date of Discharge: 04/03/19 Minutes to complete discharge: 35 Discharge Summary Problems reviewed: Yes Reason For Visit: INTRACTABLE PAIN Condition: Improved - Instructions Diet, Activity, Other Instructions: You came to the emergency room after suffering a fall at home and found to have a shoulder dislocation seen on XRAY and cat scan. You were seen by an orthopedist who re-positioned your shoulder, your symptoms improved and you were stable to be discharged home. Please resume all of your home medications in addition: for pain, please take Tylenol 650mg every 6 hours as needed Please follow up with Dr. Britton, the orthopedist, within one week Please follow up with your primary care physician within one week Please keep your arm in the sling for the time being until you see Dr. Britton *if you begin to have excrutiating pain, chest pains, shortness of breath, nausea/vomiting please return to the emergency room immediately Referrals: Yahir Britton MD [Staff Physician] - 1 Week PostAdams bass MD [Primary Care Provider] - 1 Week Disposition: HOME - Home Medications Comprehensive Discharge Medication List: Ambulatory Orders Acetaminophen [Tylenol .Regular Strength -] 650 mg PO Q6H PRN tablet 04/03/19 Atorvastatin Calcium 10 mg PO DAILY 04/03/19 Famotidine 1 tab PO BID 04/03/19 Irbesartan 1 tab PO DAILY 04/03/19 Propranolol HCl 1 tab PO DAILY 04/03/19 Ropinirole HCl 1 mg PO DAILY 04/03/19 This patient is new to me today: Yes Date on this admission: 04/03/19 Emergency Visit: Yes ED Registration Date: 04/02/19 Care time: The patient presented to the Emergency Department on the above date and was hospitalized for further evaluation of their emergent condition. Critical Care patient: No - Discharge Referral Referred to [facility] No ATTENDING PHYSICIAN STATEMENT I saw and evaluated the patient. I reviewed the resident's note and discussed the case with the resident. I agree with the resident's findings and plan as documented. SUBJECTIVE: OBJECTIVE: ASSESSMENT AND PLAN:
== END 2019-04-03 16:03 | disposition home or self-care (01) ==
LOC: JER 10:34 → JERBED 21:56
PROVIDERS: ADMIT Internal Medicine; ATTEND Internal Medicine
PROC: 0PSGXZZ Reposition Left Humeral Shaft, External Approach (ICD-10-PCS; principal; 2019-04-02)
PROC: 3E033NZ Introduction of Analgesics, Hypnotics, Sedatives into Peripheral Vein, Percutaneous Approach (ICD-10-PCS; 2019-04-02)
PROC: 3E033GC Introduction of Other Therapeutic Substance into Peripheral Vein, Percutaneous Approach (ICD-10-PCS; 2019-04-02)
DX: S42.252A Displaced fracture of greater tuberosity of left humerus, initial encounter for closed fracture (principal); S42.145A Nondisplaced fracture of glenoid cavity of scapula, left shoulder, initial encounter for closed fracture; S42.132A Displaced fracture of coracoid process, left shoulder, initial encounter for closed fracture; W01.0XXA Fall on same level from slipping, tripping and stumbling without subsequent striking against object, initial encounter; Y93.E1 Activity, personal bathing and showering; Y92.091 Bathroom in other non-institutional residence as the place of occurrence of the external cause
CPT/HCPCS: 24505; 36415; 70450-TC; 71046-TC-FY; 72125-TC; 73030-TC-LT-FY; 73200-TC-RT; 80048; 80053; 83735; 83880; 84100; 85025; 85027; 85610; 86850; 86900; 86901; 93005; 93010; 96374; 96376; 99284-25; G0378; J1644

== ENCOUNTER 2021-11-03 06:22 | Inpatient (IN) | payer OTHER, MEDICARE ==
[2021-11-03] MEDS ORDERED: CARBIDOPA/LEVODOPA 25/100 TABLET (FP) PO ONE (07:33)
[2021-11-03] MEDS ORDERED: ACETAMINOPHEN 500 MG TABLET (FP) PO ONE (07:34)
[2021-11-03] MEDS ORDERED: ACETAMINOPHEN 325 MG TABLET (FP) ONE ×3 (07:55→22:36)
[2021-11-03] MEDS ORDERED: CARBIDOPA/LEVODOPA 25/100 TABLET (FP) ONE ×3 (07:55→17:09)
[2021-11-03 08:15] LABS: BASO % 0.5 % (0-2.0); EOS % 0.7 % (0-4.5); HEMATOCRIT 25.7 % (32.4-45.2); HEMOGLOBIN 8.6 GM/dL (10.7-15.3); LYMPH % 9.9 % (8-40); MCH 32.2 pg (25.7-33.7); MCHC 33.4 g/dl (32.0-36.0); MEAN CELL VOLUME 96.3 fl (80-96); MEAN PLT VOLUME 7.6 fl (7.5-11.1); NEUT % 83.9 % (42.8-82.8); PLATELET COUNT 260 10^3/uL (134-434); RBC 2.67 M/mm3 (3.60-5.2); RDW 13.6 % (11.6-15.6); WHITE BLOOD COUNT 12.4 K/mm3 (4.0-10.0)
[2021-11-03 08:20] LABS: BLOOD UREA NITROGEN 97.1 mg/dL (7-18); CALCIUM 8.4 mg/dL (8.5-10.1)
[2021-11-03 08:21] LABS: MAGNESIUM 2.3 mg/dL (1.8-2.4)
[2021-11-03 08:24] LABS: CREATININE 1.8 mg/dL (0.55-1.3)
[2021-11-03 08:25] LABS: BILIRUBIN,TOTAL 0.8 mg/dL (0.2-1); TOT PROT 5.2 g/dl (6.4-8.2)
[2021-11-03 08:27] LABS: INR 1.03 (0.83-1.09); PROTHROMBIN TIME (PATIENT) 11.8 SEC (9.7-13.0)
[2021-11-03 08:28] LABS: ALBUMIN 2.8 g/dl (3.4-5.0)
[2021-11-03 08:29] LABS: ACTIVATED PTT 25.9 SECONDS (25.2-36.5)
[2021-11-03 09:38] LABS: EPI CELLS 31 /uL (0-25.1); HYALINE CASTS 4 /uL (0-3.1); URINE APPEARANCE CLEAR; URINE BACTERIA 28 /uL (0-1359); URINE BILIRUBIN NEGATIVE (NEGATIVE); URINE COLOR YELLOW; URINE GLUCOSE (UA) NEGATIVE (NEGATIVE); URINE KETONE TRACE (NEGATIVE); URINE LEUK ESTERASE 1+ (NEGATIVE); URINE NITRITE NEGATIVE (NEGATIVE); URINE PROTEIN NEGATIVE (NEGATIVE); URINE RBC 5 /uL (0-23.9); URINE WBC 70 /uL (0-25.8)
[2021-11-03] MEDS ORDERED: rOPINIRole HCL 0.5 MG TABLET PO ONE (10:04)
[2021-11-03] MEDS ORDERED: SODIUM CHLORIDE 1,000 ML IV SCH ×2 (10:15→21:45)
[2021-11-03] MEDS ORDERED: CEFTRIAXONE 1 GM/50 ML BAG ONE (10:45)
[2021-11-03] MEDS: CEFTRIAXONE 1 GM in DEXTROSE 5%-WATER - 50 ML IVPB SCH (10:47)
[2021-11-03] MEDS: CARBIDOPA/LEVODOPA 25/100 TABLET (FP) PO SCH ×2 (13:44→17:17)
[2021-11-03] MEDS ORDERED: CARBIDOPA/LEVODOPA 25/100 TABLET (FP) PO SCH (14:00)
[2021-11-03] MEDS: ACETAMINOPHEN 325 MG TABLET (FP) PO PRN ×2 (15:46→22:51)
[2021-11-03] MEDS ORDERED: SODIUM CHLORIDE 1,000 ML IV STA (17:19)
[2021-11-03] MEDS ORDERED: SODIUM CHLORIDE 500 ML IV STA (19:40)
[2021-11-03] MEDS ORDERED: rOPINIRole HCL 0.5 MG TABLET PO SCH (22:00)
[2021-11-03] MEDS ORDERED: ATORVASTATIN CA 10 MG TABLET (FP) ONE (22:36)
[2021-11-03] MEDS: ATORVASTATIN CA 10 MG TABLET (FP) PO SCH (22:51)
[2021-11-04 07:07] LABS: HEMATOCRIT 16.9 % (32.4-45.2); MCH 33.1 pg (25.7-33.7); MCHC 32.9 g/dl (32.0-36.0); MEAN CELL VOLUME 100.6 fl (80-96); MEAN PLT VOLUME 8.3 fl (7.5-11.1); PLATELET COUNT 217 10^3/uL (134-434); RBC 1.68 M/mm3 (3.60-5.2); RDW 13.4 % (11.6-15.6); WHITE BLOOD COUNT 13.1 K/mm3 (4.0-10.0)
[2021-11-04 07:23] LABS: CHLORIDE 116 mmol/L (98-107); SODIUM 142 mmol/L (136-145)
[2021-11-04 07:28] LABS: ANION GAP 9 MMOL/L (8-16); CALCIUM 7.4 mg/dL (8.5-10.1); CO2 16 mmol/L (21-32)
[2021-11-04 07:29] LABS: GLUCOSE,RANDOM 115 mg/dL (74-106)
[2021-11-04 07:32] LABS: CREATININE 1.6 mg/dL (0.55-1.3)
[2021-11-04 07:47] LABS: BLOOD UREA NITROGEN 112.4 mg/dL (7-18)
[2021-11-04 08:27] LABS: HEMOGLOBIN 5.6 GM/dL (10.7-15.3)
[2021-11-04] MEDS ORDERED: cefTRIAXone SODIUM 1 GM VIAL ONE (09:28)
[2021-11-04] MEDS ORDERED: DEXTROSE 5%-WATER - 50 ML IVPB ONE (09:28)
[2021-11-04] MEDS: CEFTRIAXONE 1 GM in DEXTROSE 5%-WATER - 50 ML IVPB SCH (09:34)
[2021-11-04] MEDS: rOPINIRole HCL 0.25 MG TABLET PO SCH ×3 (09:34→22:00)
[2021-11-04] MEDS ORDERED: rOPINIRole HCL 0.5 MG TABLET PO SCH (10:00)
[2021-11-04] MEDS: PANTOPRAZOLE SODIUM 160 MG in SODIUM CHLORIDE 290 ML IVPB SCH (11:28)
[2021-11-04] MEDS ORDERED: FUROSEMIDE 40 MG/4 ML INJECTABLE VIAL IVPUSH PRN (16:36)
[2021-11-04] MEDS: ATORVASTATIN CA 10 MG TABLET (FP) PO SCH (22:00)
[2021-11-05 05:27] LABS: HEMATOCRIT 24.9 % (32.4-45.2); HEMOGLOBIN 8.8 GM/dL (10.7-15.3); MCH 32.5 pg (25.7-33.7); MCHC 35.3 g/dl (32.0-36.0); MEAN CELL VOLUME 92.1 fl (80-96); MEAN PLT VOLUME 7.8 fl (7.5-11.1); PLATELET COUNT 167 10^3/uL (134-434); RBC 2.71 M/mm3 (3.60-5.2); RDW 13.9 % (11.6-15.6)
[2021-11-05] MEDS: PANTOPRAZOLE SODIUM 160 MG in SODIUM CHLORIDE 290 ML IVPB SCH ×2 (06:31→14:26)
[2021-11-05 07:35] LABS: INR 0.94 (0.83-1.09); PROTHROMBIN TIME (PATIENT) 10.8 SEC (9.7-13.0)
[2021-11-05 07:49] LABS: CALCIUM 8.2 mg/dL (8.5-10.1)
[2021-11-05 07:53] LABS: CREATININE 1.3 mg/dL (0.55-1.3)
[2021-11-05] MEDS ORDERED: rOPINIRole HCL 0.5 MG TABLET PO SCH (08:06)
[2021-11-05 08:11] LABS: BLOOD UREA NITROGEN 80.7 mg/dL (7-18)
[2021-11-05] MEDS ORDERED: cefTRIAXone SODIUM 1 GM VIAL ONE (10:04)
[2021-11-05] MEDS ORDERED: DEXTROSE 5%-WATER - 50 ML IVPB ONE (10:05)
[2021-11-05] MEDS: CEFTRIAXONE 1 GM in DEXTROSE 5%-WATER - 50 ML IVPB SCH (10:21)
[2021-11-05] MEDS: ACETAMINOPHEN 325 MG TABLET (FP) PO PRN (16:31)
[2021-11-05] MEDS ORDERED: rOPINIRole HCL 0.5 MG TABLET PO ONE (20:00)
[2021-11-05] MEDS: ATORVASTATIN CA 10 MG TABLET (FP) PO SCH (21:51)
[2021-11-06] MEDS: PANTOPRAZOLE SODIUM 160 MG in SODIUM CHLORIDE 290 ML IVPB SCH ×2 (02:15→11:00)
[2021-11-06 07:03] LABS: BASO % 0.7 % (0-2.0); EOS % 4.6 % (0-4.5); HEMATOCRIT 21.6 % (32.4-45.2); HEMOGLOBIN 7.5 GM/dL (10.7-15.3); LYMPH % 13.1 % (8-40); MCH 32.5 pg (25.7-33.7); MEAN PLT VOLUME 7.7 fl (7.5-11.1); MONO % 6.1 % (3.8-10.2); NEUT % 75.5 % (42.8-82.8); PLATELET COUNT 161 10^3/uL (134-434); RBC 2.32 M/mm3 (3.60-5.2); RDW 14.1 % (11.6-15.6); WHITE BLOOD COUNT 9.9 K/mm3 (4.0-10.0)
[2021-11-06 07:31] LABS: CALCIUM 8.3 mg/dL (8.5-10.1)
[2021-11-06 07:35] LABS: CREATININE 1.1 mg/dL (0.55-1.3)
[2021-11-06 07:41] LABS: BLOOD UREA NITROGEN 48.8 mg/dL (7-18)
[2021-11-06] MEDS ORDERED: rOPINIRole HCL 0.5 MG TABLET PO ONE ×2 (08:00→18:00)
[2021-11-06] MEDS ORDERED: DEXTROSE 5%-WATER - 50 ML IVPB ONE ×2 (08:46→09:38)
[2021-11-06] MEDS ORDERED: cefTRIAXone SODIUM 1 GM VIAL ONE ×2 (08:46→09:38)
[2021-11-06] MEDS: CEFTRIAXONE 1 GM in DEXTROSE 5%-WATER - 50 ML IVPB SCH (09:14)
[2021-11-06] MEDS ORDERED: SODIUM CHLORIDE 250 ML IV STA (09:47)
[2021-11-06 16:54] LABS: EOS % 4.4 % (0-4.5); HEMATOCRIT 28.5 % (32.4-45.2); HEMOGLOBIN 9.8 GM/dL (10.7-15.3); MCH 32.3 pg (25.7-33.7); MCHC 34.4 g/dl (32.0-36.0); MEAN CELL VOLUME 93.7 fl (80-96); MONO % 6.7 % (3.8-10.2); NEUT % 76.9 % (42.8-82.8); RBC 3.04 M/mm3 (3.60-5.2); RDW 14.3 % (11.6-15.6); WHITE BLOOD COUNT 10.4 K/mm3 (4.0-10.0)
[2021-11-06 17:54] LABS: PLATELET ESTIMATE NORMAL
[2021-11-06 17:56] LABS: MEAN PLT VOLUME 8.5 fl (7.5-11.1); PLATELET COUNT 153 10^3/uL (134-434)
[2021-11-06] MEDS ORDERED: MELATONIN 5 MG TABLETS PO ONE (21:29)
[2021-11-06] MEDS: ATORVASTATIN CA 10 MG TABLET (FP) PO SCH (21:42)
[2021-11-07] MEDS: rOPINIRole HCL 0.5 MG TABLET PO SCH ×2 (06:10→17:54)
[2021-11-07] MEDS: PANTOPRAZOLE SODIUM 160 MG in SODIUM CHLORIDE 290 ML IVPB SCH (07:00)
[2021-11-07 07:48] LABS: BASO % 0.7 % (0-2.0); EOS % 5.4 % (0-4.5); HEMATOCRIT 26.4 % (32.4-45.2); HEMOGLOBIN 9.1 GM/dL (10.7-15.3); LYMPH % 11.4 % (8-40); MCH 32.2 pg (25.7-33.7); MCHC 34.6 g/dl (32.0-36.0); MEAN CELL VOLUME 93.1 fl (80-96); MEAN PLT VOLUME 8.6 fl (7.5-11.1); MONO % 6.5 % (3.8-10.2); PLATELET COUNT 155 10^3/uL (134-434); RBC 2.84 M/mm3 (3.60-5.2); RDW 14.3 % (11.6-15.6); WHITE BLOOD COUNT 5.9 K/mm3 (4.0-10.0)
[2021-11-07 08:09] LABS: CHLORIDE 109 mmol/L (98-107); SODIUM 139 mmol/L (136-145)
[2021-11-07 08:16] LABS: CALCIUM 8.3 mg/dL (8.5-10.1)
[2021-11-07 08:17] LABS: ALBUMIN 2.8 g/dl (3.4-5.0); ANION GAP 7 MMOL/L (8-16); BLOOD UREA NITROGEN 33.9 mg/dL (7-18); CO2 23 mmol/L (21-32); GLUCOSE,RANDOM 97 mg/dL (74-106)
[2021-11-07 08:20] LABS: SGOT/AST 12 U/L (15-37)
[2021-11-07 08:22] LABS: BILIRUBIN,TOTAL 0.7 mg/dL (0.2-1); TOT PROT 5.3 g/dl (6.4-8.2)
[2021-11-07 08:24] LABS: ALK PHOS 134 U/L (45-117); SGPT/ALT < 6 U/L (13-61)
[2021-11-07] MEDS ORDERED: DEXTROSE 5%-WATER - 50 ML IVPB ONE (10:02)
[2021-11-07] MEDS ORDERED: cefTRIAXone SODIUM 1 GM VIAL ONE (10:02)
[2021-11-07] MEDS: CEFTRIAXONE 1 GM in DEXTROSE 5%-WATER - 50 ML IVPB SCH (10:21)
[2021-11-07] MEDS: ACETAMINOPHEN 325 MG TABLET (FP) PO PRN ×2 (10:22→18:05)
[2021-11-07] MEDS ORDERED: SODIUM CHLORIDE 0.9% 500 ML INFUS.BAG IV ONE (13:10)
[2021-11-07] MEDS ORDERED: SODIUM CHLORIDE 1,000 ML IV STA (13:25)
[2021-11-07 14:14] LABS: BASO % 0.4 % (0-2.0); EOS % 5.1 % (0-4.5); HEMATOCRIT 22.8 % (32.4-45.2); LYMPH % 10.3 % (8-40); MCH 32.2 pg (25.7-33.7); MEAN CELL VOLUME 91.8 fl (80-96); MEAN PLT VOLUME 8.2 fl (7.5-11.1); MONO % 7.9 % (3.8-10.2); NEUT % 76.3 % (42.8-82.8); PLATELET COUNT 150 10^3/uL (134-434); RBC 2.49 M/mm3 (3.60-5.2); RDW 14.2 % (11.6-15.6); WHITE BLOOD COUNT 4.4 K/mm3 (4.0-10.0)
[2021-11-07 17:48] LABS: BASO % 0.8 % (0-2.0); EOS % 5.9 % (0-4.5); HEMATOCRIT 26.7 % (32.4-45.2); HEMOGLOBIN 9.2 GM/dL (10.7-15.3); LYMPH % 12.3 % (8-40); MCH 31.8 pg (25.7-33.7); MCHC 34.5 g/dl (32.0-36.0); MEAN CELL VOLUME 92.3 fl (80-96); MEAN PLT VOLUME 7.9 fl (7.5-11.1); MONO % 8.3 % (3.8-10.2); NEUT % 72.7 % (42.8-82.8); PLATELET COUNT 169 10^3/uL (134-434); RDW 14.2 % (11.6-15.6); WHITE BLOOD COUNT 5.1 K/mm3 (4.0-10.0)
[2021-11-07] MEDS: ATORVASTATIN CA 10 MG TABLET (FP) PO SCH (21:45)
[2021-11-07] MEDS: MELATONIN 5 MG TABLETS PO PRN (21:45)
[2021-11-07] MEDS: CARBIDOPA/LEVODOPA 10/100 TABLET (FP) PO SCH (21:45)
[2021-11-07] MEDS ORDERED: PANTOPRAZOLE SODIUM 40 MG VIAL IVPUSH SCH (22:00)
[2021-11-08] MEDS: ACETAMINOPHEN 325 MG TABLET (FP) PO PRN ×4 (02:20→18:33)
[2021-11-08] MEDS: rOPINIRole HCL 0.5 MG TABLET PO SCH ×2 (06:22→17:46)
[2021-11-08] MEDS: CARBIDOPA/LEVODOPA 10/100 TABLET (FP) PO SCH ×3 (06:23→21:07)
[2021-11-08 07:44] LABS: HEMATOCRIT 24.9 % (32.4-45.2); HEMOGLOBIN 8.6 GM/dL (10.7-15.3); MCH 31.8 pg (25.7-33.7); MCHC 34.5 g/dl (32.0-36.0); MEAN CELL VOLUME 92.2 fl (80-96); MEAN PLT VOLUME 8.3 fl (7.5-11.1); PLATELET COUNT 174 10^3/uL (134-434); WHITE BLOOD COUNT 4.1 K/mm3 (4.0-10.0)
[2021-11-08 08:12] LABS: CALCIUM 7.8 mg/dL (8.5-10.1)
[2021-11-08 08:13] LABS: ALBUMIN 2.5 g/dl (3.4-5.0); BLOOD UREA NITROGEN 27.5 mg/dL (7-18); MAGNESIUM 2.2 mg/dL (1.8-2.4)
[2021-11-08 08:16] LABS: PHOSPHOROUS 2.9 mg/dL (2.5-4.9)
[2021-11-08 08:17] LABS: TOT PROT 4.7 g/dl (6.4-8.2)
[2021-11-08 08:18] LABS: BILIRUBIN,TOTAL 0.4 mg/dL (0.2-1)
[2021-11-08 09:51] LABS: ANISOCYTOSIS 0; MACROCYTOSIS 0; PLATELET ESTIMATE NORMAL
[2021-11-08] MEDS: PANTOPRAZOLE 40 MG TABLET PO SCH ×2 (10:03→18:57)
[2021-11-08] MEDS: MELATONIN 5 MG TABLETS PO PRN (21:07)
[2021-11-08] MEDS: ATORVASTATIN CA 10 MG TABLET (FP) PO SCH (21:07)
[2021-11-09] MEDS: ACETAMINOPHEN 325 MG TABLET (FP) PO PRN ×2 (00:18→06:15)
[2021-11-09] MEDS ORDERED: MIRTAZAPINE 15 MG TABLET (FP) PO ONE (01:00)
[2021-11-09] MEDS ORDERED: BENZOCAINE/MENTH/CETYLPYRD CL 1 EACH LOZENGE MM PRN (01:33)
[2021-11-09] MEDS: CARBIDOPA/LEVODOPA 10/100 TABLET (FP) PO SCH ×4 (06:15→21:27)
[2021-11-09] MEDS: rOPINIRole HCL 0.5 MG TABLET PO SCH ×2 (06:15→17:34)
[2021-11-09] MEDS ORDERED: guaiFENesin/D-METHORPHAN HB 10 ML UNIT-DOSE CUPS PO ONE (06:30)
[2021-11-09] MEDS ORDERED: FUROSEMIDE 40 MG/4 ML INJECTABLE VIAL IVPUSH ONE (07:35)
[2021-11-09 08:14] LABS: BASO % 0.6 % (0-2.0); EOS % 6.3 % (0-4.5); HEMATOCRIT 26.9 % (32.4-45.2); HEMOGLOBIN 9.3 GM/dL (10.7-15.3); LYMPH % 23.7 % (8-40); MCH 32.2 pg (25.7-33.7); MCHC 34.7 g/dl (32.0-36.0); MEAN CELL VOLUME 92.7 fl (80-96); MEAN PLT VOLUME 8.5 fl (7.5-11.1); MONO % 8.7 % (3.8-10.2); NEUT % 60.7 % (42.8-82.8); PLATELET COUNT 196 10^3/uL (134-434); RDW 13.8 % (11.6-15.6); WHITE BLOOD COUNT 4.4 K/mm3 (4.0-10.0)
[2021-11-09 08:32] LABS: CALCIUM 8.2 mg/dL (8.5-10.1)
[2021-11-09 08:33] LABS: ALBUMIN 2.6 g/dl (3.4-5.0); BLOOD UREA NITROGEN 20.7 mg/dL (7-18); MAGNESIUM 2.1 mg/dL (1.8-2.4)
[2021-11-09 08:36] LABS: CREATININE 1.1 mg/dL (0.55-1.3); PHOSPHOROUS 3.2 mg/dL (2.5-4.9)
[2021-11-09 08:37] LABS: BILIRUBIN,TOTAL 0.4 mg/dL (0.2-1)
[2021-11-09] MEDS: PANTOPRAZOLE 40 MG TABLET PO SCH ×2 (08:37→21:27)
[2021-11-09] MEDS ORDERED: GLYCERIN 1 RECTAL SUPPOSITORY, ADULT PR PRN (10:17)
[2021-11-09] MEDS: POLYETHYLENE GLYCOL (HEALTHYLAX) 3350 17 GM PACKET PO SCH (12:17)
[2021-11-09] MEDS: GLYCERIN 1 RECTAL SUPPOSITORY, ADULT RC PRN (16:15)
[2021-11-09] MEDS ORDERED: BENZOCAINE/MENTH/CETYLPYRD CL 1 EACH LOZENGE MM SCH (21:01)
[2021-11-09] MEDS: DOCUSATE SODIUM 100 MG CAPSULE (FP) PO SCH (21:27)
[2021-11-09] MEDS: ATORVASTATIN CA 10 MG TABLET (FP) PO SCH (21:27)
[2021-11-09] MEDS: MELATONIN 5 MG TABLETS PO PRN (21:28)
[2021-11-10] MEDS: BENZOCAINE/MENTH/CETYLPYRD CL 1 EACH LOZENGE MM PRN ×3 (04:27→16:21)
[2021-11-10] MEDS: rOPINIRole HCL 0.5 MG TABLET PO SCH ×2 (06:11→17:45)
[2021-11-10] MEDS: PANTOPRAZOLE 40 MG TABLET PO SCH ×2 (07:45→18:37)
[2021-11-10 07:55] LABS: BASO % 0.7 % (0-2.0); EOS % 5.7 % (0-4.5); HEMOGLOBIN 9.5 GM/dL (10.7-15.3); LYMPH % 27.1 % (8-40); MCH 32.1 pg (25.7-33.7); MCHC 35.1 g/dl (32.0-36.0); MEAN CELL VOLUME 91.3 fl (80-96); MEAN PLT VOLUME 8.3 fl (7.5-11.1); MONO % 6.9 % (3.8-10.2); NEUT % 59.6 % (42.8-82.8); PLATELET COUNT 257 10^3/uL (134-434); RBC 2.96 M/mm3 (3.60-5.2); RDW 13.7 % (11.6-15.6); WHITE BLOOD COUNT 5.3 K/mm3 (4.0-10.0)
[2021-11-10 08:31] LABS: ALBUMIN 2.6 g/dl (3.4-5.0); BLOOD UREA NITROGEN 21.8 mg/dL (7-18); MAGNESIUM 2.1 mg/dL (1.8-2.4)
[2021-11-10 08:34] LABS: CREATININE 1.2 mg/dL (0.55-1.3)
[2021-11-10 08:36] LABS: BILIRUBIN,TOTAL 0.4 mg/dL (0.2-1)
[2021-11-10] MEDS: POLYETHYLENE GLYCOL (HEALTHYLAX) 3350 17 GM PACKET PO SCH (09:50)
[2021-11-10] MEDS: CARBIDOPA/LEVODOPA 10/100 TABLET (FP) PO SCH ×4 (09:52→21:40)
[2021-11-10] MEDS ORDERED: BENZOCAINE/MENTH/CETYLPYRD CL 1 EACH LOZENGE MM SCH (10:00)
[2021-11-10] MEDS: ACETAMINOPHEN 325 MG TABLET (FP) PO PRN (17:44)
[2021-11-10] MEDS: MELATONIN 5 MG TABLETS PO PRN (21:40)
[2021-11-10] MEDS: DOCUSATE SODIUM 100 MG CAPSULE (FP) PO SCH (21:40)
[2021-11-10] MEDS: ATORVASTATIN CA 10 MG TABLET (FP) PO SCH (21:40)
[2021-11-11] MEDS: PANTOPRAZOLE 40 MG TABLET PO SCH ×2 (06:29→21:41)
[2021-11-11] MEDS: rOPINIRole HCL 0.5 MG TABLET PO SCH ×2 (06:29→17:36)
[2021-11-11] MEDS: ACETAMINOPHEN 325 MG TABLET (FP) PO PRN ×2 (07:22→17:36)
[2021-11-11] MEDS: CARBIDOPA/LEVODOPA 10/100 TABLET (FP) PO SCH ×4 (09:31→21:41)
[2021-11-11] MEDS: POLYETHYLENE GLYCOL (HEALTHYLAX) 3350 17 GM PACKET PO SCH (09:31)
[2021-11-11 15:09] LABS: CALCIUM 7.8 mg/dL (8.5-10.1)
[2021-11-11 15:10] LABS: ALBUMIN 2.4 g/dl (3.4-5.0); BLOOD UREA NITROGEN 29.6 mg/dL (7-18)
[2021-11-11 15:13] LABS: CREATININE 1.4 mg/dL (0.55-1.3)
[2021-11-11 15:15] LABS: BILIRUBIN,TOTAL 0.6 mg/dL (0.2-1); TOT PROT 4.8 g/dl (6.4-8.2)
[2021-11-11] MEDS ORDERED: SODIUM CHLORIDE 1,000 ML IV SCH (15:15)
[2021-11-11] MEDS ORDERED: REMDESIVIR 200 MG in SODIUM CHLORIDE 250 ML IVPB ONE (16:32)
[2021-11-11] MEDS ORDERED: DEXAMETHASONE SOD PHOSPHATE 10 MG/1 ML VIAL IM SCH (16:45)
[2021-11-11] MEDS: ATORVASTATIN CA 10 MG TABLET (FP) PO SCH (21:41)
[2021-11-11] MEDS: MELATONIN 5 MG TABLETS PO PRN (21:41)
[2021-11-11] MEDS: DOCUSATE SODIUM 100 MG CAPSULE (FP) PO SCH (21:41)
[2021-11-11] MEDS: BENZOCAINE/MENTH/CETYLPYRD CL 1 EACH LOZENGE MM PRN (21:42)
[2021-11-11 22:28] LABS: MAGNESIUM 2.2 mg/dL (1.8-2.4)
[2021-11-11 22:32] LABS: PHOSPHOROUS 5.2 mg/dL (2.5-4.9)
[2021-11-12] MEDS: rOPINIRole HCL 0.5 MG TABLET PO SCH ×2 (06:29→17:33)
[2021-11-12] MEDS: PANTOPRAZOLE 40 MG TABLET PO SCH ×2 (06:29→22:45)
[2021-11-12 08:18] LABS: HEMATOCRIT 27.5 % (32.4-45.2); HEMOGLOBIN 9.5 GM/dL (10.7-15.3); MCH 31.8 pg (25.7-33.7); MCHC 34.4 g/dl (32.0-36.0); MEAN CELL VOLUME 92.5 fl (80-96); MEAN PLT VOLUME 8.1 fl (7.5-11.1); PLATELET COUNT 321 10^3/uL (134-434); RBC 2.98 M/mm3 (3.60-5.2); RDW 13.5 % (11.6-15.6); WHITE BLOOD COUNT 4.1 K/mm3 (4.0-10.0)
[2021-11-12 08:47] LABS: ALBUMIN 2.6 g/dl (3.4-5.0); BLOOD UREA NITROGEN 25.5 mg/dL (7-18); CALCIUM 8.1 mg/dL (8.5-10.1)
[2021-11-12 08:50] LABS: CREATININE 1.1 mg/dL (0.55-1.3)
[2021-11-12 08:52] LABS: BILIRUBIN,TOTAL 0.6 mg/dL (0.2-1); TOT PROT 5.3 g/dl (6.4-8.2)
[2021-11-12] MEDS: DEXAMETHASONE SOD PHOSPHATE 10 MG/1 ML VIAL IVPUSH SCH (09:01)
[2021-11-12] MEDS: CARBIDOPA/LEVODOPA 10/100 TABLET (FP) PO SCH ×4 (09:03→22:44)
[2021-11-12] MEDS: POLYETHYLENE GLYCOL (HEALTHYLAX) 3350 17 GM PACKET PO SCH (09:04)
[2021-11-12] MEDS: ACETAMINOPHEN 325 MG TABLET (FP) PO PRN (11:04)
[2021-11-12] MEDS: BENZOCAINE/MENTH/CETYLPYRD CL 1 EACH LOZENGE MM PRN (17:56)
[2021-11-12] MEDS: GLYCERIN 1 RECTAL SUPPOSITORY, ADULT RC PRN (18:37)
[2021-11-12 21:17] VITALS: BMI 25.6
[2021-11-12] MEDS: DOCUSATE SODIUM 100 MG CAPSULE (FP) PO SCH (22:45)
[2021-11-12] MEDS: MELATONIN 5 MG TABLETS PO PRN (22:45)
[2021-11-12] MEDS: SENNOSIDES/DOCUSATE COMBO (SENNA PLUS) TABLET (UD) PO SCH (22:45)
[2021-11-12] MEDS: ATORVASTATIN CA 10 MG TABLET (FP) PO SCH (22:45)
[2021-11-13] MEDS: rOPINIRole HCL 0.5 MG TABLET PO SCH ×2 (05:28→17:10)
[2021-11-13 07:31] LABS: HEMOGLOBIN 9.3 GM/dL (10.7-15.3); MCH 31.8 pg (25.7-33.7); MCHC 34.4 g/dl (32.0-36.0); MEAN CELL VOLUME 92.4 fl (80-96); MEAN PLT VOLUME 7.9 fl (7.5-11.1); PLATELET COUNT 342 10^3/uL (134-434); RBC 2.92 M/mm3 (3.60-5.2); RDW 13.5 % (11.6-15.6); WHITE BLOOD COUNT 7.7 K/mm3 (4.0-10.0)
[2021-11-13] MEDS: PANTOPRAZOLE 40 MG TABLET PO SCH ×2 (07:39→20:00)
[2021-11-13 08:13] LABS: CALCIUM 8.5 mg/dL (8.5-10.1)
[2021-11-13 08:14] LABS: BLOOD UREA NITROGEN 21.5 mg/dL (7-18)
[2021-11-13] MEDS ORDERED: ENOXAPARIN NA (PORCINE) 40 MG/0.4 ML DISP.SYRIN SQ SCH (10:00)
[2021-11-13] MEDS: CARBIDOPA/LEVODOPA 10/100 TABLET (FP) PO SCH ×4 (10:02→21:31)
[2021-11-13] MEDS: POLYETHYLENE GLYCOL (HEALTHYLAX) 3350 17 GM PACKET PO SCH (10:02)
[2021-11-13] MEDS: DEXAMETHASONE SOD PHOSPHATE 10 MG/1 ML VIAL IVPUSH SCH (10:02)
[2021-11-13] MEDS: ACETAMINOPHEN 325 MG TABLET (FP) PO PRN (10:03)
[2021-11-13] MEDS: SENNOSIDES/DOCUSATE COMBO (SENNA PLUS) TABLET (UD) PO SCH (21:31)
[2021-11-13] MEDS: ATORVASTATIN CA 10 MG TABLET (FP) PO SCH (21:31)
[2021-11-14] MEDS: rOPINIRole HCL 0.5 MG TABLET PO SCH ×2 (06:10→17:23)
[2021-11-14] MEDS: PANTOPRAZOLE 40 MG TABLET PO SCH ×2 (07:50→20:15)
[2021-11-14] MEDS: POLYETHYLENE GLYCOL (HEALTHYLAX) 3350 17 GM PACKET PO SCH (10:25)
[2021-11-14] MEDS: CARBIDOPA/LEVODOPA 10/100 TABLET (FP) PO SCH ×4 (10:25→21:15)
[2021-11-14] MEDS: DEXAMETHASONE SOD PHOSPHATE 10 MG/1 ML VIAL IVPUSH SCH (10:25)
[2021-11-14 10:52] LABS: HEMATOCRIT 27.1 % (32.4-45.2); HEMOGLOBIN 9.4 GM/dL (10.7-15.3); MCH 32.3 pg (25.7-33.7); MCHC 34.6 g/dl (32.0-36.0); MEAN CELL VOLUME 93.3 fl (80-96); MEAN PLT VOLUME 7.5 fl (7.5-11.1); PLATELET COUNT 373 10^3/uL (134-434); RDW 13.8 % (11.6-15.6); WHITE BLOOD COUNT 8.9 K/mm3 (4.0-10.0)
[2021-11-14] MEDS ORDERED: cefTRIAXone SODIUM 1 GM VIAL ONE (11:04)
[2021-11-14] MEDS ORDERED: DEXTROSE 5%-WATER - 50 ML IVPB ONE (11:04)
[2021-11-14] MEDS: CEFTRIAXONE 1 GM in DEXTROSE 5%-WATER - 50 ML IVPB SCH (11:17)
[2021-11-14 11:49] LABS: BLOOD UREA NITROGEN 26.5 mg/dL (7-18)
[2021-11-14 11:51] LABS: CREATININE 1.2 mg/dL (0.55-1.3)
[2021-11-14 11:52] LABS: CALCIUM 8.4 mg/dL (8.5-10.1)
[2021-11-14] MEDS: SENNOSIDES/DOCUSATE COMBO (SENNA PLUS) TABLET (UD) PO SCH (21:15)
[2021-11-14] MEDS: ATORVASTATIN CA 10 MG TABLET (FP) PO SCH (21:15)
[2021-11-15] MEDS: BENZOCAINE/MENTH/CETYLPYRD CL 1 EACH LOZENGE MM PRN (04:05)
[2021-11-15] MEDS: rOPINIRole HCL 0.5 MG TABLET PO SCH ×2 (05:00→17:32)
[2021-11-15 07:26] LABS: HEMATOCRIT 27.4 % (32.4-45.2); HEMOGLOBIN 9.3 GM/dL (10.7-15.3); MCH 31.8 pg (25.7-33.7); MCHC 34.1 g/dl (32.0-36.0); MEAN CELL VOLUME 93.2 fl (80-96); MEAN PLT VOLUME 7.4 fl (7.5-11.1); PLATELET COUNT 380 10^3/uL (134-434); RBC 2.94 M/mm3 (3.60-5.2); RDW 13.9 % (11.6-15.6); WHITE BLOOD COUNT 9.3 K/mm3 (4.0-10.0)
[2021-11-15 07:49] LABS: MAGNESIUM 2.6 mg/dL (1.8-2.4)
[2021-11-15 07:51] LABS: CALCIUM 8.3 mg/dL (8.5-10.1)
[2021-11-15 07:52] LABS: ALBUMIN 2.8 g/dl (3.4-5.0); BLOOD UREA NITROGEN 29.4 mg/dL (7-18); PHOSPHOROUS 3.1 mg/dL (2.5-4.9)
[2021-11-15 07:55] LABS: CREATININE 1.1 mg/dL (0.55-1.3)
[2021-11-15 07:56] LABS: BILIRUBIN,TOTAL 0.7 mg/dL (0.2-1); TOT PROT 5.1 g/dl (6.4-8.2)
[2021-11-15] MEDS ORDERED: DEXTROSE 5%-WATER - 50 ML IVPB ONE (09:24)
[2021-11-15] MEDS ORDERED: cefTRIAXone SODIUM 1 GM VIAL ONE (09:24)
[2021-11-15] MEDS: CEFTRIAXONE 1 GM in DEXTROSE 5%-WATER - 50 ML IVPB SCH (09:50)
[2021-11-15] MEDS: DEXAMETHASONE SOD PHOSPHATE 10 MG/1 ML VIAL IVPUSH SCH (09:51)
[2021-11-15] MEDS: PANTOPRAZOLE 40 MG TABLET PO SCH ×2 (09:52→19:16)
[2021-11-15] MEDS: CARBIDOPA/LEVODOPA 10/100 TABLET (FP) PO SCH ×4 (09:52→22:22)
[2021-11-15] MEDS: POLYETHYLENE GLYCOL (HEALTHYLAX) 3350 17 GM PACKET PO SCH (09:53)
[2021-11-15] MEDS: ACETAMINOPHEN 325 MG TABLET (FP) PO PRN (11:31)
[2021-11-15] MEDS: SENNOSIDES/DOCUSATE COMBO (SENNA PLUS) TABLET (UD) PO SCH (22:20)
[2021-11-15] MEDS: ATORVASTATIN CA 10 MG TABLET (FP) PO SCH (22:22)
[2021-11-16] MEDS: ACETAMINOPHEN 325 MG TABLET (FP) PO PRN ×3 (04:49→21:11)
[2021-11-16] MEDS: rOPINIRole HCL 0.5 MG TABLET PO SCH (04:59)
[2021-11-16] MEDS: PANTOPRAZOLE 40 MG TABLET PO SCH (06:42)
[2021-11-16] MEDS ORDERED: cefTRIAXone SODIUM 1 GM VIAL ONE (08:57)
[2021-11-16] MEDS ORDERED: DEXTROSE 5%-WATER - 50 ML IVPB ONE (08:58)
[2021-11-16] MEDS: CEFTRIAXONE 1 GM in DEXTROSE 5%-WATER - 50 ML IVPB SCH (09:23)
[2021-11-16] MEDS: DEXAMETHASONE SOD PHOSPHATE 10 MG/1 ML VIAL IVPUSH SCH (09:24)
[2021-11-16] MEDS: POLYETHYLENE GLYCOL (HEALTHYLAX) 3350 17 GM PACKET PO SCH (09:25)
[2021-11-16 09:51] LABS: BASO % 0.4 % (0-2.0); HEMOGLOBIN 9.5 GM/dL (10.7-15.3); LYMPH % 15.8 % (8-40); MCH 31.4 pg (25.7-33.7); MEAN CELL VOLUME 92.3 fl (80-96); MEAN PLT VOLUME 7.5 fl (7.5-11.1); MONO % 6.7 % (3.8-10.2); NEUT % 75.1 % (42.8-82.8); PLATELET COUNT 433 10^3/uL (134-434); RBC 3.03 M/mm3 (3.60-5.2); RDW 13.8 % (11.6-15.6); WHITE BLOOD COUNT 14.7 K/mm3 (4.0-10.0)
[2021-11-16 10:24] LABS: CALCIUM 8.7 mg/dL (8.5-10.1)
[2021-11-16 10:25] LABS: BLOOD UREA NITROGEN 26.1 mg/dL (7-18)
[2021-11-16 10:30] LABS: BILIRUBIN,TOTAL 0.5 mg/dL (0.2-1); TOT PROT 5.7 g/dl (6.4-8.2)
[2021-11-16] MEDS: CARBIDOPA/LEVODOPA 10/100 TABLET (FP) PO SCH ×4 (11:13→21:10)
[2021-11-16] MEDS ORDERED: rOPINIRole HCL 0.25 MG TABLET PO ONE (12:14)
[2021-11-16] MEDS: rOPINIRole HCL 0.25 MG TABLET PO SCH ×2 (14:58→21:11)
[2021-11-16] MEDS ORDERED: PANTOPRAZOLE 40 MG TABLET PO SCH (19:29)
[2021-11-16] MEDS: ATORVASTATIN CA 10 MG TABLET (FP) PO SCH (21:10)
[2021-11-16] MEDS: SENNOSIDES/DOCUSATE COMBO (SENNA PLUS) TABLET (UD) PO SCH (21:10)
[2021-11-16] MEDS: BENZOCAINE/MENTH/CETYLPYRD CL 1 EACH LOZENGE MM PRN (21:11)
[2021-11-16] MEDS: MELATONIN 5 MG TABLETS PO PRN (21:11)
[2021-11-17] MEDS: ACETAMINOPHEN 325 MG TABLET (FP) PO PRN (06:09)
[2021-11-17] MEDS: rOPINIRole HCL 0.25 MG TABLET PO SCH ×2 (06:09→13:27)
[2021-11-17 08:50] LABS: BASO % 0.5 % (0-2.0); EOS % 2.2 % (0-4.5); HEMATOCRIT 27.9 % (32.4-45.2); HEMOGLOBIN 9.7 GM/dL (10.7-15.3); LYMPH % 21.3 % (8-40); MCH 32.6 pg (25.7-33.7); MCHC 34.7 g/dl (32.0-36.0); MEAN CELL VOLUME 93.9 fl (80-96); MEAN PLT VOLUME 7.5 fl (7.5-11.1); MONO % 8.5 % (3.8-10.2); NEUT % 67.5 % (42.8-82.8); PLATELET COUNT 393 10^3/uL (134-434); RBC 2.97 M/mm3 (3.60-5.2); RDW 14.2 % (11.6-15.6); WHITE BLOOD COUNT 10.8 K/mm3 (4.0-10.0)
[2021-11-17 09:20] LABS: ALBUMIN 2.9 g/dl (3.4-5.0)
[2021-11-17 09:21] LABS: CALCIUM 8.8 mg/dL (8.5-10.1); MAGNESIUM 2.6 mg/dL (1.8-2.4)
[2021-11-17 09:23] LABS: CREATININE 1.1 mg/dL (0.55-1.3)
[2021-11-17 09:25] LABS: BILIRUBIN,TOTAL 0.4 mg/dL (0.2-1); TOT PROT 5.7 g/dl (6.4-8.2)
[2021-11-17] MEDS ORDERED: cefTRIAXone SODIUM 1 GM VIAL ONE (09:37)
[2021-11-17] MEDS ORDERED: DEXTROSE 5%-WATER - 50 ML IVPB ONE (09:37)
[2021-11-17] MEDS: CEFTRIAXONE 1 GM in DEXTROSE 5%-WATER - 50 ML IVPB SCH (10:19)
[2021-11-17] MEDS: CARBIDOPA/LEVODOPA 10/100 TABLET (FP) PO SCH ×2 (10:19→13:27)
[2021-11-17] MEDS: POLYETHYLENE GLYCOL (HEALTHYLAX) 3350 17 GM PACKET PO SCH ×2 (10:19→10:26)
[2021-11-17] MEDS: DEXAMETHASONE SOD PHOSPHATE 10 MG/1 ML VIAL IVPUSH SCH (10:19)
[2021-11-17] MEDS ORDERED: PANTOPRAZOLE 40 MG TABLET PO SCH (10:30)
[2021-11-17 11:25] VITALS: BP 122/78; PULSE 59; TEMP 97.9
== END 2021-11-17 14:17 | disposition short-term general hospital (02) | DRG 377 ==
LOC: JER 06:22 → JERBED 07:33 → J4W 23:33 → J4S 11-16 00:10
PROVIDERS: ADMIT Internal Medicine; ATTEND Internal Medicine
PROC: 30233N1 Transfusion of Nonautologous Red Blood Cells into Peripheral Vein, Percutaneous Approach (ICD-10-PCS; 2021-11-04)
PROC: 3E0333Z Introduction of Anti-inflammatory into Peripheral Vein, Percutaneous Approach (ICD-10-PCS; principal; 2021-11-11)
DX: K92.2 Gastrointestinal hemorrhage, unspecified (principal); U07.1 COVID-19; J12.82 Pneumonia due to coronavirus disease 2019; N17.9 Acute kidney failure, unspecified; N39.0 Urinary tract infection, site not specified; I24.8 Other forms of acute ischemic heart disease; D62 Acute posthemorrhagic anemia; J98.11 Atelectasis; R55 Syncope and collapse; E78.5 Hyperlipidemia, unspecified; G25.81 Restless legs syndrome; G20 Parkinson's disease; W18.39XA Other fall on same level, initial encounter; Y92.091 Bathroom in other non-institutional residence as the place of occurrence of the external cause; K59.00 Constipation, unspecified; D53.9 Nutritional anemia, unspecified; T39.395A Adverse effect of other nonsteroidal anti-inflammatory drugs [NSAID], initial encounter; G90.9 Disorder of the autonomic nervous system, unspecified; I95.9 Hypotension, unspecified; M54.59 Other low back pain; I12.9 Hypertensive chronic kidney disease with stage 1 through stage 4 chronic kidney disease, or unspecified chronic kidney disease; B96.4 Proteus (mirabilis) (morganii) as the cause of diseases classified elsewhere; N18.9 Chronic kidney disease, unspecified
CPT/HCPCS: 0241U-QW; 36415; 36430; 70450-TC; 71045-TC-FY; 72125-TC; 72170-TC-FY; 74176-TC; 80048; 80053; 81003; 82272; 82550; 82607; 82728; 82746; 82962; 83540; 83550; 83605; 83735; 84100; 84443; 84484; 85025; 85027; 85045; 85610; 85730; 86140; 86850; 86900; 86901; 86922; 87070; 87077; 87086; 87205; 93005; 93010; 93306-TC; 94010; 94761; 97116-GP; 97162-GP; 99285-25; J1100; P9058